=== PATIENT | male | born 1955 | race Caucasian/White ===

== ENCOUNTER 2019-02-01 07:42 | Day surgery (SDC) | payer OTHER, SELFPAY ==
--- NOTE | 2019-02-01 | PATH_ITS ---
[facility] Accession Number: [id number] . 01 Material submitted: . PART A: gastrointestinal site - GASTRIC POLYP PART B: esophagus, E-G Junction - BIOPSY GE JUNCTION PART C: esophagus - BIOPSY ESOPHAGUS AT 15 CM PART D: rectum - RECTUM NEAR ANUS POLYP . 01 Clinical history: . COLONOSCOPY; EGD . 02 Diagnosis: A. Gastric Polyp, Biopsy: Fragments of fundic gland polyp. No evidence of Helicobacter organisms on H/E stain. Negative for intestinal metaplasia, dysplasia or malignancy. . B. Gastroesophageal Junction, Biopsy: Squamocolumnar junctional mucosa with focal specialized intestinal metaplasia; please see comment. 0-1 eosinophils per 40X high-power field. Negative for dysplasia or malignancy. . C. Esophagus at 15 cm, Biopsy: Squamous epithelium with no diagnostic abnormality. 0-1 eosinophils per 40X high-power field. Negative for dysplasia or malignancy. . D. Rectum, Near Anus, Polyp: Hyperplastic polyp. [facility]/02/04/2019 . 02 Comment: Part B) The histologic findings would be consistent with Galindo's esophagus in the appropriate endoscopic setting. . 02 Electronically signed: . Adis Andrade MD, PhD, Pathologist NPI- [id number] . 01 Gross description: . Part A: GASTRIC POLYP: Received in formalin are multiple fragment(s) of patton, soft tissue measuring 0.1 x 0.1 x 0.1 cm to 0.3 x 0.2 x 0.2 cm which is entirely submitted and submitted entirely in 1 cassette(s) Part B: BIOPSY GE JUNCTION: Received in formalin are 4 fragment(s) of patton, soft tissue measuring 0.1 x 0.1 x 0.1 cm to 0.2 x 0.2 x 0.2 cm which is entirely submitted and submitted entirely in 1 cassette(s) Part C: BIOPSY ESOPHAGUS AT 15 CM: Received in formalin are 2 fragment(s) of patton, soft tissue measuring 0.1 x 0.1 x 0.1 cm to 0.3 x 0.1 x 0.1 cm which is entirely submitted and submitted entirely in 1 cassette(s) Part D: RECTUM NEAR ANUS POLYP: Received in formalin are 2 fragment(s) of patton, soft tissue measuring 0.1 x 0.1 x 0.1 cm to 0.3 x 0.1 x 0.1 cm which is entirely submitted and submitted entirely in 1 cassette(s) /[facility] /[facility] . 02 Pathologist provided ICD-10: K22.70, K31.7, R13.10, K62.1 . 02 CPT . 554156, 139055, 431786, 144822 Performed at: 01 [facility] [address] [id number] MD Yash Cardenas MD Phone: [phone] Performed at: 02 [facility] [address] [place], [place] [id number] MD Adriana Hawthorne MD Phone: [phone]
[2019-02-01 08:28] VITALS: BMI 27.0
[2019-02-01 08:35] VITALS: BP 161/96; PULSE 63; RESP 16; TEMP 36.8; O2SAT 95
[2019-02-01] MEDS: SODIUM CHLORIDE 0.9% 1,000 ML 200 ML IV (08:43)
--- NOTE | 2019-02-01 10:10 | PM.HP.1 ---
History of Present Illness Date Patient Seen: 02/01/19 Time Patient Seen: 10:10 Chief complaint: [id number] COLONSCOPY EGD Narrative: Patient was traveling in [place] a couple months ago and had multiple episodes of bloody bowel movements. He got to the point where he was lightheaded. He went and saw and they could not schedule a scope on him for at least months. He returned here and is presents for colonoscopy. He also has chronic reflux disease and a little bit of sensation is sticking in the upper throat area. He is for an EGD as well. He has had a colon resection for diverticulitis. This was in the late Patient History Medical History GERD (gastroesophageal reflux disease) (Acute) Hepatitis A (Acute) Hypertension (Acute) Swallowing dysfunction (Acute) Surgical History H/O resection of large bowel (Acute) Meds Home Medications Medication Instructions Recorded Confirmed Type amlodipine 2.5 mg PO DAILY 02/01/19 02/01/19 History omeprazole 20 mg PO DAILY 02/01/19 02/01/19 History zolpidem [Ambien] 10 mg PO BEDTIME PRN 02/01/19 02/01/19 History Allergies Allergy/AdvReac Type Severity Reaction Status Date / Time erythromycin base Allergy Severe Stomach Verified 02/01/19 08:24 ache Review of Systems Review of Systems All systems reviewed & are unremarkable except as noted in HPI and below Exam Vital Signs (past 8 hours): - 02/01/19 08:35 Temperature 98.2 F Pulse Rate 63 Respiratory Rate 16 Blood Pressure 161/96 H Pulse Oximetry 95 Oxygen Delivery Method Room Air Narrative Exam Narrative: Pleasant cooperative patient no apparent distress. Lungs are clear to auscultation. No rales or rhonchi. Heart regular rate and rhythm no murmur gallop. Abdomen is soft nontender without mass. No obvious hernias. Patient is alert and oriented x3. Assessment & Plan Assessment & Plan narrative: The patient for a screening colonoscopy. I have discussed the procedure with them. Risks of bleeding, perforation which would necessitate major operation, failure to find remove all lesions, the potential tattoo were all discussed. All questions were answered. They wished to proceed.
--- NOTE | 2019-02-01 10:13 | PM.PREOP ---
Pre-operative Note Interval Note History & Physical reviewed/Exam performed by Physician: Yes Changes to H&P: No ASA Class (for procedural sedation): II
[2019-02-01] MEDS: TETRACAINE/BENZOCAINE/BUTAMBEN (CETACAINE) BOTTLE 1 SPRAY TOP (10:16)
[2019-02-01] MEDS: LIDOCAINE 4% SOLN 50 ML 20 ML TOP (10:16)
[2019-02-01] MEDS: MIDAZOLAM 5 MG/5 ML VIAL IV (10:48)
[2019-02-01] MEDS: fentaNYL 250 MCG/5 ML INJ IV (10:49)
--- NOTE | 2019-02-01 10:54 | PM.OP.ENDO ---
Operative Date/Time/Diagnoses Date of procedure: 02/01/19 Time of procedure: 10:54 Pre-op diagnosis: Dysphagia. Chronic reflux disease. History of rectal bleeding. Post-op diagnosis: same (Gastric polyps. Probably fundic benign lesions. Evidence of Galindo's esophagus. GE junction biopsied. Extensive diverticulosis of the colon. Small rectal polyp.) Procedure & Clinicians Study performed: Colonoscopy with cold biopsy Same procedure as scheduled: Yes Indications: Rectal bleeding. Chronic reflux disease. Last colonoscopy 4 years ago Surgeon: Max Hays Procedure Notes SCOAP/Timeout: Performed Procedure in detail: The patient had topical anesthetic applied to oropharynx. She was placed in left lateral decubitus position and underwent IV sedation directed by the surgeon consisting of fentanyl and Versed. A bite block was inserted and the scope was advanced through it into the esophagus. The esophagus was unremarkable. GE junction was noted at 35 cm from the incisors. There were tongues of red tissue extending above the GE junction suggestive of Galindo's esophagus.. The stomach insufflated well. There were no lesions seen in the body, antrum or at the incisura. The pyloric channel was patent. The duodenum was unremarkable to the 4th part. The scope was brought back into the stomach and retroflexed. The proximal stomach was remarkable for a few scattered polyps that looked like gastric fundic polyps. Biopsies were taken of multiple lesions. The scope was straightened and brought out through the esophagus again. Biopsies were taken here. The scope was then slowly withdrawn. In the proximal esophagus just below the cricopharyngeal sphincter at 15 cm from the incisors there were 2 raised areas that looked like something pressing from behind the esophagus rather than an abnormality of the esophagus itself. Even so, both areas which were adjacent to 1 another were biopsied. The scope was then removed and the patient tolerated the procedure well. The patient was repositioned for colonoscopy. The patient was placed in the left lateral decubitus position and underwent IV sedation directed by the surgeon consisting of fentanyl and Versed. Digital exam was remarkable for an enlarged firm prostate. No dominant mass was felt.. The scope was inserted and advanced through the rectum into the sigmoid, descending, transverse, and ascending colon. Extensive diverticulosis was seen especially in the sigmoid colon. This was dubon colonic. Pressure was applied and a stiffener inserted and we reach the cecum.. The cecum was reached identified by the ileocecal valve and the appendiceal opening. The scope was gradually brought out. One Polyp was found at near the anal verge. This was a tiny lesion and was biopsied and completely removed.. The scope ultimately was retroflexed in the rectum. The appearance was normal.. The scope was removed and the patient tolerated the procedure well. The prep was good. Scope withdrawal time: 9 minutes Sedation minutes: 36 Findings: Galindo's esophagus (Possible. Biopsies taken), diverticulosis (Dubon colonic) and polyp (Gastric fundic polyps and 1 small anorectal polyp) Specimen(s): other (Polyp) Complications: none Recommendations: Colonscopy in 5 years (Due to prior history of polyps) and Other recommendation (Most likely source of bleeding diverticulosis. Take Metamucil daily. Eat a diet rich in fiber.) Follow up: as needed Disposition: PACU
[2019-02-01 11:00] VITALS: BP 109/66; PULSE 57; RESP 14; TEMP 36.7; O2SAT 95
[2019-02-01 11:05] VITALS: BP 106/66; PULSE 63; RESP 16; O2SAT 95
[2019-02-01 11:10] VITALS: BP 96/66; PULSE 58; RESP 13; O2SAT 96
[2019-02-01 11:15] VITALS: BP 112/76; PULSE 66; RESP 16; O2SAT 97
[2019-02-01 11:23] VITALS: BP 125/83; PULSE 59; RESP 15; TEMP 36.4; O2SAT 98
== END 2019-02-01 11:35 | disposition home or self-care (01) ==
LOC: ENDO 07:43
PROVIDERS: Family Provider Family Medicine Geriatric Medicine; PCP Family Medicine Geriatric Medicine; Visit Provider Specialist
PROC: 0DJD8ZZ Inspection of Lower Intestinal Tract, Via Natural or Artificial Opening Endoscopic (ICD-10-PCS; CPT 45378; principal; 2019-02-01 09:45)
PROC: 0DJ08ZZ Inspection of Upper Intestinal Tract, Via Natural or Artificial Opening Endoscopic (ICD-10-PCS; CPT 43235; 2019-02-01 09:45)
DX: K62.1 Rectal polyp (principal); R13.10 Dysphagia, unspecified; K22.70 Barrett's esophagus without dysplasia; K31.7 Polyp of stomach and duodenum; K21.9 Gastro-esophageal reflux disease without esophagitis; K57.30 Diverticulosis of large intestine without perforation or abscess without bleeding
CPT/HCPCS: 45380; 43239; 99152; 99153; J2250; J3010

== ENCOUNTER 2020-01-30 08:00 | Day surgery (SDC) | payer OTHER, SELFPAY ==
[2020-01-30] VITALS (7 sets, daily range): BP systolic 113–157; BP diastolic 69–98; PULSE 54–62; RESP 8–16; TEMP 36.1–36.6; O2SAT 91–98; BMI 29.0
--- NOTE | 2020-01-30 | PATH_ITS ---
[facility] Accession Number: [id number] . 01 Material submitted: . esophagus, E-G Junction - GE JUNCTION BIOPSY . 01 Clinical history: . EGD . 02 Diagnosis: Gastroesophageal Junction, Biopsy: Squamocolumnar junctional mucosa with specialized intestinal metaplasia; please see comment. Negative for dysplasia or malignancy. [facility] 01/31/2020 1456 Local . 02 Comment: The histologic findings in this case would be consistent with Galindo's esophagus in the appropriate endoscopic setting. . 02 Electronically signed: . Adis Andrade MD, PhD, Pathologist NPI- [id number] . 01 Gross description: . GE JUNCTION BIOPSY: Received in formalin are 4 fragment(s) of patton, soft tissue measuring 0.1 x 0.1 x 0.1 cm to 0.3 x 0.2 x 0.2 cm submitted entirely in 1 cassette(s) /[facility] 01/31/2020 0159 Local . 02 Pathologist provided ICD-10: K22.70 . 02 CPT . 173715 Performed at: 01 [facility] [address], [place], [place] [id number] MD Yash Cardenas MD Phone: [phone] Performed at: 02 [facility] [address] [place], [place] [id number] MD Adriana Hawthorne MD Phone: [phone]
--- NOTE | 2020-01-30 09:29 | PM.PREOP ---
Pre-operative Note COVID-19 COVID-19 status: Negative Result date/Date tested (Pos, Neg/Pending): 01/27/20 Interval Note History & Physical reviewed/Exam performed by Physician: Yes Changes to H&P: No ASA Class (for procedural sedation): II
--- NOTE | 2020-01-30 10:06 | PM.OP.ENDO ---
Operative Date/Time/Diagnoses Date of procedure: 01/30/20 Time of procedure: 10:06 Pre-op diagnosis: Dysphagia. History of reflux disease. Post-op diagnosis: same (Schatzki ring at the GE junction. Mild narrowing with evidence of possible Galindo's esophagus.) Procedure & Clinicians Study performed: EGD with cold biopsy and through the scope balloon dilatation to 18 mm diameter Same procedure as scheduled: Yes Indications: Evaluate cause of dysphagia Surgeon: Max Hays Procedure Notes SCOAP/Timeout: Performed Procedure in detail: The patient had topical anesthetic applied to oropharynx. She was placed in left lateral decubitus position and underwent IV sedation directed by the surgeon consisting of fentanyl and Versed. A bite block was inserted and the scope was advanced through it into the esophagus. The esophagus was unremarkable. GE junction was noted at 37 cm from the incisors. The patient had a 2-3 cm hiatal hernia. The stomach insufflated well. There were no lesions seen in the body, antrum or at the incisura. The pyloric channel was widely patent. The duodenum was unremarkable to the 4th part. The scope was brought back into the stomach and retroflexed. The proximal stomach normal in appearance except for the hiatal hernia. The scope was brought up to the GE junction and biopsies were taken of the area of possible Galindo's as well as circumferentially. A balloon was then passed through the scope and the patient was sequentially dilated from 15-18 mm sequentially. There was really no dilatation until I got above 16.5 mm. There was no significant bleeding. Once the balloon was let down, The scope was brought out through the esophagus again. No lesions were seen. The scope was removed and the patient tolerated the procedure well. Scope withdrawal time: Not applicable Sedation minutes: 18 Findings: Galindo's esophagus (Possible), stricture (At the GE junction where the Schatzki ring was located) and other findings (Schatzki ring) Specimen(s): other (Biopsy at the GE junction) Complications: none Post-procedure Recommendations: Continue medication(s) (Proton pump inhibitor for life or similar medication) Follow up: as needed Disposition: PACU
[2020-01-30] MEDS: fentaNYL 250 MCG/5 ML INJ IV (10:10)
[2020-01-30] MEDS: MIDAZOLAM 5 MG/5 ML VIAL IV (10:11)
[2020-01-30] MEDS: LIDOCAINE 4% SOLN 50 ML 20 ML TOP (10:11)
== END 2020-01-30 11:06 | disposition home or self-care (01) ==
PROVIDERS: Family Provider Family Medicine Geriatric Medicine; PCP Family Medicine; Referring Provider Specialist; Visit Provider Specialist
PROC: 0DJ08ZZ Inspection of Upper Intestinal Tract, Via Natural or Artificial Opening Endoscopic (ICD-10-PCS; CPT 43235; principal; 2020-01-30 10:45)
DX: K22.70 Barrett's esophagus without dysplasia (principal); K22.2 Esophageal obstruction; K44.9 Diaphragmatic hernia without obstruction or gangrene; I10 Essential (primary) hypertension; K21.9 Gastro-esophageal reflux disease without esophagitis
CPT/HCPCS: 43249; 43239; 99152; J2250; J3010

== ENCOUNTER 2020-08-23 11:17 | Observation (INO) | payer OTHER, SELFPAY ==
[2020-08-23 13:56] VITALS: BP 141/104; PULSE 65; RESP 14; TEMP 36.8; O2SAT 99
--- NOTE | 2020-08-23 14:04 | PM.HP.1 ---
History of Present Illness History of Present Illness Date Patient Seen: 08/23/20 Time Patient Seen: 14:04 Chief complaint: SMALL BOWEL OBSTRUCTION Narrative: Dao Barth is a 65-year-old male with a past medical history of hypertension, GERD with hx of Estes's and Schatski ring noted on recent EGD, prior diverticulitis with bowel resection about 20 years ago who presented with acute onset of nausea, profuse vomiting of clear red fluid (states after taking pepto), and crampy lower abdominal pain and bloating starting at about 6pm last evening. He had a bowel movement last night which was normal caliber and appearance but denies any gas or bowel movements since that time. He states that he previously had symptoms like this prior to an episode of what sounds like diverticular bleeding while [place] which was never found to have a cause. He presented to the ER on [facility] early this morning. He denies recent fever, chills, chest pain, shortness of breath, lower extremity edema. He does not drink alcohol. In the [facility], initial laboratory evaluation showed a mild leukocytosis of 12.1, hemoglobin of 16.3, normal platelets at 195. Chemistries were unremarkable with a creatinine of 0.7. Total bilirubin was mildly elevated at 1.9. Lactic acid was 3.5. Urinalysis was negative. Troponin was negative. EKG showed normal sinus rhythm without evidence of ischemia. CT scan of his abdomen showed a small-bowel obstruction with a transition point and possible surrounding swelling mesentery as well as diverticulosis and cholelithiasis without evidence of cholecystitis. ER at [facility] initially called [facility] in [place], however they did not have any available beds, and the patient was accepted here for further management of small-bowel obstruction. He was brought [facility] by private vehicle by his . No NG tube was placed prior to arrival, as his pain was fairly controlled on IV medications. Upon arrival here, patient complains of again lower abdominal pain, bloating, and slight nausea. He agreed to NG tube placement. Surgery was notified, and Dr. Jo agreed to consult. Patient History Medical History GERD (gastroesophageal reflux disease) Hepatitis A Hypertension Swallowing dysfunction Surgical History (Reviewed 08/23/20 @ 14:43 by JACQUIE Milton H/O resection of large bowel Family & Social History Social History: household members spouse,children Tobacco & Substance use: Smoking Status Never smoker alcohol intake never Substance Use Type does not use Meds Home Medications and Allergies Home Medications Medication Instructions Recorded Confirmed Type amlodipine 2.5 mg PO DAILY 02/01/19 08/23/20 History omeprazole 20 mg PO DAILY 02/01/19 08/23/20 History zolpidem [Ambien] 10 mg PO BEDTIME PRN 02/01/19 08/23/20 History Allergies Allergy/AdvReac Type Severity Reaction Status Date / Time erythromycin base Allergy Severe Stomach Verified 01/22/20 10:45 ache Review of Systems Review of Systems Narrative: All other systems reviewed with the patient and are negative unless otherwise stated. Exam Vital Signs (past 8 hours): - 08/23/20 13:56 Temperature 98.3 F Pulse Rate 65 Respiratory Rate 14 Blood Pressure 141/104 H Pulse Oximetry 99 Oxygen Flow Rate 0 Narrative Exam Narrative: GENERAL APPEARANCE: Well developed, well nourished, mild discomfort. SKIN: Inspection of the skin reveals no rashes, ulcerations or petechiae. HEENT: Normocephalic atraumatic, extraocular muscles are intact, oropharynx is clear and mucous membranes are moist, neck is supple without adenopathy NECK: Supple and symmetric. There was no thyroid enlargement, and no tenderness, or masses were felt. CHEST: Normal AP diameter and normal contour without any kyphoscoliosis. LUNGS: Auscultation of the lungs revealed no wheezes, rhonchi, or rales. CARDIOVASCULAR: There was a regular rate and rhythm without any murmurs, gallops, rubs. Peripheral pulses were 2+ and symmetric. ABDOMEN: Soft, mildly tender in epigastrium and to a lesser extend b/l lower quadrants. Mild distension. No rebound or guarding. MUSCULOSKELETAL: There was no tenderness or effusions noted. Muscle strength and tone were normal. EXTREMITIES: No cyanosis, clubbing or edema. NEUROLOGIC: Alert and oriented x 3. Normal affect. Gait was normal. Strength is +5/5 in the Upper Extremities and Lower Extremities Bilaterally. Sensation to touch was normal. Objective ECG Impression: Normal sinus rhythm. Poor quality printing of outside hospital EKG. Labs Labs: Please see above in HPI for review of outside labs. Assessment & Plan Assessment & Plan narrative: Dao Barth is a 65-year-old male with a past medical history of hypertension, GERD with hx of Estes's and Schatski ring noted on recent EGD, prior diverticulitis with bowel resection about 20 years ago who presented with acute onset of nausea, profuse vomiting of clear red fluid (states after taking pepto), and crampy lower abdominal pain and bloating starting at about 6pm last evening, direct admission from [facility] ER for small bowel obstruction. 1. SBO, acute, present on admission - Outside CT showing SBO with transition point and possible swirling of the surrounding mesentery. Diverticulosis and cholelithiasis is also noted. Attempting to have images pushed from [facility] to avoid repeat imaging. Etiology likely secondary to adhesions given prior bowel resection. - NPO, start IV fluids, pain control with dilaudid. - NG tube placement, to intermittent suction. - surgery, Dr. Jo, consulted. - repeat labs including CBC, CMP, type and screen, and coags. lactate ordered. LA 3.4 at [facility] ER. 2. Possible hematemesis, history of GERD. - possible hematemesis given nausea / vomiting of clear red material. with history of estes's esophagus and Schatzki Ring likely contributing. - patient is hemodynamically stable, will repeat labs to see if profound drop in Hg, although he appears slightly concentrated / dehydrated based on labs at [facility]. - will start protonix 80 mg x1, continue 40 mg BID pending NG placement which will be helpful in determining if he is actively bleeding. 3. HTN, chronic - will hold home medications at this time while NPO. Code: Full as discussed with the patient, surrogate decision maker is his . Dispo: admit under observation status at this time. DVT: hold in case of possible surgery, patient ambulatory. COVID-19 COVID-19 status: Negative Result date/Date tested (Pos, Neg/Pending): 08/23/20
[2020-08-23] MEDS: DEXTROSE 5%-0.9% NS 1,000 ML 100 ML IV ×2 (14:16→22:47)
[2020-08-23] MEDS: LORazepam 2 MG/ML INJ 0.5 MG IV (14:17)
[2020-08-23 14:25] VITALS: BMI 27.6
--- NOTE | 2020-08-23 14:29 | DI.RAD.S_ITS ---
PROCEDURE: FL SMALL BOWEL FOLLOW THROUGH INDICATIONS: SBFT COMPARISON: None. FINDINGS: Visualized solid organ contours appear within normal limits. No precontrast slitter and rewinder machine operator image obtained prior to administration of oral contrast through the nasogastric tube. There is normal transit time of oral contrast through the small bowel. Small bowel loops are of normal caliber throughout. Mucosal folds are smooth and of normal thickness. No strictures, intraluminal masses, or extrinsic mass effects are noted. Oral contrast is noted to transit to the level of the rectum. IMPRESSION: Unremarkable small bowel follow-through with transit of oral contrast from the stomach through the rectum. Dictated by: Nicholas Slater M.D. on 08/23/2020 at 19:20 Approved by: Nicholas Slater M.D. on 08/23/2020 at 19:25
[2020-08-23] MEDS: PANTOPRAZOLE 40 MG VIAL 80 MG IV (14:49)
[2020-08-23] MEDS: LIDOCAINE JELLY 2% 5 ML 1 APPLIC TOP (14:53)
[2020-08-23 14:59] LABS: Add Manual Diff / Slide Review NO; Basophils Absolute Auto 0 /uL (0-100); Basophils Percent Auto 0.2 % (0-2); Eosinophils Absolute Auto 0 /uL (0-450); Eosinophils Percent Auto 0.3 % (2-4); Hematocrit 44.3 % (41-53); Hemoglobin 14.8 g/dL (13.5-17.5); Lymphocytes Absolute Auto 1100 /uL (1100-4500); Lymphocytes Percent Auto 8.9 % (25-40); Mean Corpuscular HGB Conc 33.5 % (30-36); Mean Corpuscular Hemoglobin 31.3 PG (26-34); Mean Corpuscular Volume 93.6 fL (80-100); Monocytes Absolute Auto 800 /uL (0-900); Monocytes Percent Auto 6.2 % (3-14); Neutrophils Absolute Auto 10600 /uL (1500-7000); Neutrophils Percent Auto 84.4 % (50-75); Platelet Count 145 X10^3/uL (150-400); Red Blood Cell Count 4.73 X10^6/uL (4.5-5.9); Red Cell Distribution Width 13.7 % (11.6-14.8); White Blood Cell Count 12.5 X10^3/uL (4.5-11.0)
[2020-08-23 15:06] LABS: INR 1.1 (0.9-1.3); Prothrombin Time 12.8 SECONDS (10.1-12.7)
--- NOTE | 2020-08-23 15:06 | DI.RAD.S_ITS ---
PROCEDURE: XR CHEST 1V INDICATIONS: confirm NG tube placement TECHNIQUE: One view of the chest was acquired. COMPARISON: None. FINDINGS: Surgical changes and devices: The tip of the gastric tube is seen overlying the mid stomach. The side hole is seen just below the level of the diaphragm. Lungs and pleura: Lungs are clear. No pleural effusions or pneumothorax. Mediastinum: The cardiac contours are within normal limits. The aorta demonstrates calcification and tortuosity. Bones and chest wall: No suspicious bony lesions. Overlying soft tissues appear unremarkable. IMPRESSION: The tip of the gastric tube is seen overlying the mid stomach. Dictated by: Renato Silva M.D. on 08/23/2020 at 14:28 Approved by: Renato Silva M.D. on 08/23/2020 at 14:29
[2020-08-23 15:11] LABS: Alanine Aminotransferase 19 IU/L (<50); Albumin Globulin Ratio 1.4 (1.0-2.8); Alkaline Phosphatase 54 U/L (38-126); Aspartate Aminotransferase 26 IU/L (17-59); BUN Creatinine Ratio 18.2 (6-22); Bilirubin Total 1.9 mg/dL (0.2-1.3); Blood Urea Nitrogen 16 mg/dL (9-20); Calcium 8.5 mg/dL (8.4-10.2); Carbon Dioxide 29 mmol/L (22-32); Chloride 107 mmol/L (98-107); Estimated Glomerular Filt Rate > 60.0 mL/min (>60); Globulin 2.8 g/dL (1.7-4.1); Glucose 103 mg/dL (80-110); HEMOLYSIS < 15 (0-50); Potassium 3.6 mmol/L (3.4-5.1); Sodium 140 mmol/L (137-145); Total Protein 6.8 g/dL (6.3-8.2)
[2020-08-23 15:13] LABS: PTT Partial Thromboplastin Tim 31 SECONDS (26.4-36.2)
--- NOTE | 2020-08-23 15:28 | PC.NURSE ---
Patient received as direct admit from Monday, settled into and oriented to room 203. Patient denies pain on arrival, though RLQ of abdomen is tender to touch. Patient states the pain medication given to him prior to leaving [facility] helped a lot. Patient seen and evaluated by Dr. Ge, orders received. NG tube inserted to right nare with spontaneous suction of orange/red fluid, secured at 62CM, and Xray in to confirm placement, awaiting confirmation prior to SB follow through. Urinal and call light placed within reach. Patient instructed to call for assistance, maintain high fall risk fall precautions. Bed alarm in place for safety. Evening shift RN given report.
[2020-08-23] MEDS: ONDANSETRON 4 MG/2 ML INJ IV (16:08)
[2020-08-23 16:25] VITALS: BP 137/83; PULSE 71; RESP 20; TEMP 37; O2SAT 95
[2020-08-23] MEDS: METOCLOPRAMIDE 10 MG/2 ML INJ IV (19:01)
--- NOTE | 2020-08-23 19:55 | PC.NURSE ---
Patient had multiple BMs following SB follow through. Dr. Jo removed NG tube and put patient on clear liquids, advancing as tolerated. Patient is still having nausea but reports feeling better overall.
--- NOTE | 2020-08-23 20:17 | P.CONS_ITS ---
History of Present Illness Consult details Date Patient Seen: 08/23/20 Time Patient Seen: 20:17 Chief complaint: SMALL BOWEL OBSTRUCTION Narrative: 65-year-old man seen in consultation for small-bowel obstruction. History of diverticular disease and elective sigmoid colectomy 20 years ago no other prior abdominal surgeries. Today he developed abdominal pain, nausea, vomiting and bloating. CT A/P at [place] demonstrated a small-bowel obstruction with a possible transition point, no free air or free fluid. At outside hospital WBC 12, normal chemistry. A nasogastric tube was placed upon his admission. Currently, after completing a small bowel follow through, he has had multiple bowel movements and has minimal abdominal pain and improvement in his bloating. Meds Home Medications and Allergies Home Medications Medication Instructions Recorded Confirmed Type amlodipine 2.5 mg PO DAILY 02/01/19 08/23/20 History omeprazole 20 mg PO DAILY 02/01/19 08/23/20 History zolpidem [Ambien] 10 mg PO BEDTIME PRN 02/01/19 08/23/20 History Allergies Allergy/AdvReac Type Severity Reaction Status Date / Time erythromycin base Allergy Severe Stomach Verified 01/22/20 10:45 ache Review of Systems Review of Systems ROS: Yes All systems reviewed with the patient and are negative except as otherwise documented Exam Vital Signs (past 8 hours): - 08/23/20 13:56 08/23/20 16:25 Temperature 98.3 F 98.6 F Pulse Rate 65 71 Respiratory Rate 14 20 Blood Pressure 141/104 H 137/83 Pulse Oximetry 99 95 Oxygen Flow Rate 0 Narrative Exam Narrative: General-no acute distress, well nourished adult male HEENT-moist mucous membranes, no scleral icterus Neck-supple, no lymphadenopathy Chest- non labored respirations, clear to auscultation bilaterally Cardiac-regular rate no peripheral edema Abdomen-soft, minimally distended no peritonitis Extremities-warm, well perfused Neurological-alert and oriented, no focal deficits Objective Labs Result Diagrams: 08/23/20 14:48 08/23/20 14:48 Labs: Laboratory Results - last 24 hr 08/23/20 08/23/20 08/23/20 14:48 14:48 14:48 WBC 12.5 H RBC 4.73 Hgb 14.8 Hct 44.3 MCV 93.6 MCH 31.3 MCHC 33.5 RDW 13.7 Plt Count 145 L Neut % (Auto) 84.4 H Lymph % (Auto) 8.9 L [place] % (Auto) 6.2 Eos % (Auto) 0.3 L Baso % (Auto) 0.2 Neut # (Auto) 95383 H Lymph # (Auto) 1100 [place] # (Auto) 800 Eos # (Auto) 0 Baso # (Auto) 0 PT 12.8 H INR 1.1 APTT 31 Sodium Potassium Chloride Carbon Dioxide BUN Creatinine Estimated GFR BUN/Creatinine Ratio Glucose Lactate Calcium Total Bilirubin AST ALT Alkaline Phosphatase Total Protein Albumin Globulin Albumin/Globulin Ratio Blood Type Antibody Screen 08/23/20 08/23/20 08/23/20 14:48 14:48 14:48 WBC RBC Hgb Hct MCV MCH MCHC RDW Plt Count Neut % (Auto) Lymph % (Auto) [place] % (Auto) Eos % (Auto) Baso % (Auto) Neut # (Auto) Lymph # (Auto) [place] # (Auto) Eos # (Auto) Baso # (Auto) PT INR APTT Sodium 140 Potassium 3.6 Chloride 107 Carbon Dioxide 29 BUN 16 Creatinine 0.88 Estimated GFR > 60.0 BUN/Creatinine Ratio 18.2 Glucose 103 Lactate 1.0 Calcium 8.5 Total Bilirubin 1.9 H AST 26 ALT 19 Alkaline Phosphatase 54 Total Protein 6.8 Albumin 4.0 Globulin 2.8 Albumin/Globulin Ratio 1.4 Blood Type O Positive Antibody Screen Negative Assessment & Plan Assessment and plan (1) Small bowel obstruction: Status: Acute Assessment & Plan narrative: 65-year-old man history of sigmoid colectomy for benign disease presents with a small bowel obstruction likely secondary to adhesive disease. I am unable to view the outside hospital images at this time but per report demonstrates small bowel obstruction with possible transition point no free air or free fluid. A small-bowel follow-through has now been completed and demonstrates contrast within the colon at 2 hours time. He has had multiple bowel movements and feels significantly better. I removed the nasogastric tube, he may begin on clear liquid diet advance as tolerated. If he is tolerant of a diet and continues to have no significant abdominal pain he this appropriate for discharge.
[2020-08-23 21:00] VITALS: BP 132/110; PULSE 79; RESP 20; TEMP 37; O2SAT 95
[2020-08-23] MEDS: PANTOPRAZOLE 40 MG VIAL IV (22:41)
[2020-08-23 22:42] VITALS: BP 146/77; PULSE 65
[2020-08-23 23:10] VITALS: BP 136/76; PULSE 66; RESP 18; TEMP 36.9; O2SAT 94
[2020-08-23 23:39] VITALS: O2SAT 95
[2020-08-24 03:00] VITALS: O2SAT 95
[2020-08-24 05:10] VITALS: BP 141/90; PULSE 62; RESP 18; TEMP 36.6; O2SAT 96
[2020-08-24 05:31] LABS: Add Manual Diff / Slide Review NO; Basophils Absolute Auto 0 /uL (0-100); Basophils Percent Auto 0.3 % (0-2); Eosinophils Absolute Auto 100 /uL (0-450); Eosinophils Percent Auto 1.3 % (2-4); Hematocrit 40.7 % (41-53); Hemoglobin 13.8 g/dL (13.5-17.5); Lymphocytes Absolute Auto 1900 /uL (1100-4500); Lymphocytes Percent Auto 22.3 % (25-40); Mean Corpuscular Hemoglobin 31.7 PG (26-34); Mean Corpuscular Volume 93.2 fL (80-100); Monocytes Absolute Auto 800 /uL (0-900); Monocytes Percent Auto 9.4 % (3-14); Neutrophils Absolute Auto 5800 /uL (1500-7000); Neutrophils Percent Auto 66.7 % (50-75); Platelet Count 139 X10^3/uL (150-400); Red Blood Cell Count 4.37 X10^6/uL (4.5-5.9); Red Cell Distribution Width 13.6 % (11.6-14.8); White Blood Cell Count 8.7 X10^3/uL (4.5-11.0)
[2020-08-24 05:40] LABS: Alanine Aminotransferase 17 IU/L (<50); Albumin 3.5 g/dL (3.5-5.0); Albumin Globulin Ratio 1.3 (1.0-2.8); Alkaline Phosphatase 47 U/L (38-126); Aspartate Aminotransferase 23 IU/L (17-59); BUN Creatinine Ratio 18.7 (6-22); Bilirubin Unconjugated 2.2 mg/dL (0.0-1.1); Blood Urea Nitrogen 17 mg/dL (9-20); Calcium 8.2 mg/dL (8.4-10.2); Carbon Dioxide 28 mmol/L (22-32); Chloride 112 mmol/L (98-107); Estimated Glomerular Filt Rate > 60.0 mL/min (>60); Globulin 2.6 g/dL (1.7-4.1); Glucose 112 mg/dL (80-110); HEMOLYSIS < 15 (0-50); Magnesium 2.2 mg/dL (1.6-2.3); Potassium 3.5 mmol/L (3.4-5.1); Sodium 140 mmol/L (137-145); Total Protein 6.1 g/dL (6.3-8.2)
[2020-08-24 07:00] VITALS: O2SAT 98
[2020-08-24 08:00] VITALS: BP 150/88; PULSE 69; RESP 18; TEMP 36.8; O2SAT 97
--- NOTE | 2020-08-24 08:59 | CM.DANOTE ---
DCP: Case received, EMR reviewed and met with patient. Introduced self and role. Was able to obtain information from patient regarding his baseline activity status prior to hospitalization. DCP assessment completed with information currently available. Patient is a 65 year old male who admitted yesterday morning to the care of the hospitalist team. PCP: Dr. Lamb. Payer: confirmed: [employer]. Patient came to the hospital via private vehicle from Monday accompanied with spouse, secondary to having nausea, as well as abdominal discomfort. Patient was diagnosed with small bowel obstruction. He has not needed an NG tube, and has had bowel movements. Patient does have history of diverticulitis, as well. Met with patient in his room. He is alert and oriented, independent, is able to ambulate in room with no devices. He resides in [place] with his spouse, Eduardo. He is employed at [employer]. He is originally from [place]. P: DCP to continue to follow. Patient can possibly go home today if he is tolerating diet, and having consistent BMs. Rimma Myrick RN/Managed Services Consultant
[2020-08-24] MEDS: PANTOPRAZOLE 40 MG VIAL IV (09:20)
--- NOTE | 2020-08-24 09:35 | P.DS_ITS ---
History of Present Illness History of Present Illness Date Patient Seen: 08/24/20 Time Patient Seen: 09:35 Chief complaint: SMALL BOWEL OBSTRUCTION Narrative: Dao Barth is a 65-year-old male with a past medical history of hypertension, GERD with hx of Galindo's and Schatski ring noted on recent EGD, prior diverticulitis with bowel resection about 20 years ago who presented with acute onset of nausea, profuse vomiting of clear red fluid (states after taking pepto), and crampy lower abdominal pain and bloating starting at about 6pm last evening. He had a bowel movement last night which was normal caliber and appearance but denies any gas or bowel movements since that time. He states that he previously had symptoms like this prior to an episode of what sounds like diverticular bleeding [place] which was never found to have a cause. He presented to the ER on [place] early this morning. He denies recent fever, chills, chest pain, shortness of breath, lower extremity edema. He does not drink alcohol. In the [place] [facility], initial laboratory evaluation showed a mild leukocytosis of 12.1, hemoglobin of 16.3, normal platelets at 195. Chemistries were unremarkable with a creatinine of 0.7. Total bilirubin was mildly elevated at 1.9. Lactic acid was 3.5. Urinalysis was negative. Troponin was negative. EKG showed normal sinus rhythm without evidence of ischemia. CT scan of his abdomen showed a small-bowel obstruction with a transition point and possible surrounding swelling mesentery as well as diverticulosis and cholelithiasis without evidence of cholecystitis. ER at [facility] initially called [facility] in [place], however they did not have any available beds, and the patient was accepted here for further management of small-bowel obstruction. He was brought [facility] to [facility] by private vehicle by his . No NG tube was placed prior to arrival, as his pain was fairly controlled on IV m edications. Upon arrival here, patient complains of again lower abdominal pain, bloating, and slight nausea. He agreed to NG tube placement. Surgery was notified, and Dr. Jo agreed to consult. Discharge Providers Provider Date of admission: 08/23/20 11:17 Discharge Date: 08/24/20 Primary care physician: Ramana Lamb MD Consults: 08/23/20 14:10 Consult to General Surgery Routine Comment: Consulting Provider: Brody Jo Reason for consultation: SBO Has provider been notified: Yes Discharge provider: Ez Ge DO Summary Hospital Course Discharge Diagnosis: 1. SBO, acute, present on admission, resolved 2. GERD, hematemesis ruled out. 3. HTN, chronic Hospital Course: Dao Barth is a 65-year-old male with a past medical history of hypertension, GERD with hx of Galindo's and Schatski ring noted on recent EGD, prior diverticulitis with bowel resection about 20 years ago who was a direct admission from the [facility] with a small-bowel obstruction. NG tube was placed for continued symptoms upon arrival. Patient had a small bowel follow-through study with subsequent passing of loose stools. His abdominal pain and distension improved and his NG tube was removed. He tolerated regular diet the following morning and was discharged home. There was initial concern for possible hematemesis however the patient did not have any melanotic appearing stools an his hemoglobin remained normal. He will remain on his usual home dose of omeprazole. Exam Vital Signs (past 8 hours): - 08/24/20 03:00 08/24/20 05:10 08/24/20 07:00 Temperature 97.8 F Pulse Rate 62 Respiratory Rate 18 Blood Pressure 141/90 H Pulse Oximetry 95 96 98 08/24/20 08:00 Temperature 98.3 F Pulse Rate 69 Respiratory Rate 18 Blood Pressure 150/88 H Pulse Oximetry 97 Oxygen Delivery Method Room Air Oxygen Flow Rate 0 Narrative Exam Narrative: GENERAL APPEARANCE: Well developed, well nourished, no acute distress HEENT: Normocephalic atraumatic, extraocular muscles are intact, oropharynx is clear and mucous membranes are moist, neck is supple without adenopathy LUNGS: Auscultation of the lungs revealed no wheezes, rhonchi, or rales. CARDIOVASCULAR: There was a regular rate and rhythm without any murmurs, gallops, rubs. Peripheral pulses were 2+ and symmetric. ABDOMEN: Soft, non-tender, non-distended EXTREMITIES: No cyanosis, clubbing or edema. NEUROLOGIC: Alert and oriented x 3. Normal affect. Gait was normal. Objective Labs Result Diagrams: 08/24/20 05:10 08/24/20 05:10 Labs: Laboratory Results - last 24 hr 08/23/20 08/23/2021 14:48 14:48 14:48 WBC 12.5 H RBC 4.73 Hgb 14.8 Hct 44.3 MCV 93.6 MCH 31.3 MCHC 33.5 RDW 13.7 Plt Count 145 L Neut % (Auto) 84.4 H Lymph % (Auto) 8.9 L [place] % (Auto) 6.2 Eos % (Auto) 0.3 L Baso % (Auto) 0.2 Neut # (Auto) 09127 H Lymph # (Auto) 1100 [place] # (Auto) 800 Eos # (Auto) 0 Baso # (Auto) 0 PT 12.8 H INR 1.1 APTT 31 Sodium Potassium Chloride Carbon Dioxide BUN Creatinine Estimated GFR BUN/Creatinine Ratio Glucose Lactate Calcium Magnesium Total Bilirubin Conjugated Bilirubin Unconjugated Bilirubin AST ALT Alkaline Phosphatase Total Protein Albumin Globulin Albumin/Globulin Ratio Blood Type Antibody Screen 08/23/20 08/23/20 08/23/20 14:48 14:48 14:48 WBC RBC Hgb Hct MCV MCH MCHC RDW Plt Count Neut % (Auto) Lymph % (Auto) [place] % (Auto) Eos % (Auto) Baso % (Auto) Neut # (Auto) Lymph # (Auto) [place] # (Auto) Eos # (Auto) Baso # (Auto) PT INR APTT Sodium 140 Potassium 3.6 Chloride 107 Carbon Dioxide 29 BUN 16 Creatinine 0.88 Estimated GFR > 60.0 BUN/Creatinine Ratio 18.2 Glucose 103 Lactate 1.0 Calcium 8.5 Magnesium Total Bilirubin 1.9 H Conjugated Bilirubin Unconjugated Bilirubin AST 26 ALT 19 Alkaline Phosphatase 54 Total Protein 6.8 Albumin 4.0 Globulin 2.8 Albumin/Globulin Ratio 1.4 Blood Type O Positive Antibody Screen Negative 08/24/20 08/24/20 05:10 05:10 WBC 8.7 RBC 4.37 L Hgb 13.8 Hct 40.7 L MCV 93.2 MCH 31.7 MCHC 34.0 RDW 13.6 Plt Count 139 L Neut % (Auto) 66.7 Lymph % (Auto) 22.3 L [place] % (Auto) 9.4 Eos % (Auto) 1.3 L Baso % (Auto) 0.3 Neut # (Auto) 5800 Lymph # (Auto) 1900 [place] # (Auto) 800 Eos # (Auto) 100 Baso # (Auto) 0 PT INR APTT Sodium 140 Potassium 3.5 Chloride 112 H Carbon Dioxide 28 BUN 17 Creatinine 0.91 Estimated GFR > 60.0 BUN/Creatinine Ratio 18.7 Glucose 112 H Lactate Calcium 8.2 L Magnesium 2.2 Total Bilirubin 2.0 H Conjugated Bilirubin 0.0 Unconjugated Bilirubin 2.2 H AST 23 ALT 17 Alkaline Phosphatase 47 Total Protein 6.1 L Albumin 3.5 Globulin 2.6 Albumin/Globulin Ratio 1.3 Blood Type Antibody Screen [facility] Medical History (Updated 08/23/20 @ 20:23 by Brody Jo MD) GERD (gastroesophageal reflux disease) Hepatitis A Hypertension Swallowing dysfunction Surgical History H/O resection of large bowel Social History household members: spouse and children Smoking Status: Never smoker alcohol intake: never Discharge Plan Discharge Plan Patient Disposition: Home Provider Discharge Comment: You were admitted to the hospital with small bowel obstruction. Improved after small bowel follow through and NG tube. No medication changes are recommended. Discharge orders & Medications Prescriptions: Continued amlodipine 2.5 mg Tablet 2.5 mg PO DAILY RF: 0 zolpidem [Ambien] 10 mg Tablet 10 mg PO BEDTIME PRN (Reason: Insomnia) RF: 0 omeprazole 20 mg Tablet,Delayed Release (Dr/Ec) 20 mg PO DAILY RF: 0 Follow up/Referrals: Ramana Lamb MD [Primary Care Provider] - Diet/Activity/Treatments Diet: Diet as Tolerated Activity: As tolerated Discharge Data Primary Care Provider: Ramana Lamb
[2020-08-24] MEDS: AMLODIPINE 5 MG TABLET 2.5 MG PO (10:35)
[2020-08-24 11:00] VITALS: O2SAT 98
--- NOTE | 2020-08-24 12:00 | PC.NURSE ---
Patient educated about small bowel instructions, diet changes, medications, activity, ss/ of stroke, and DVT's. Patient left facility with all belongings and ferry pass to [place]. Patient did not have any prescriptions that needed to be filled or that were e-sent. Patient left facility in private vehicle via wheelchair and by his side.
== END 2020-08-24 11:40 | disposition home or self-care (01) ==
PROVIDERS: Admitting Provider Internal Medicine; Family Provider Family Medicine Geriatric Medicine; PCP Family Medicine; Referring Provider Internal Medicine; Visit Provider Internal Medicine
DX: K56.50 Intestinal adhesions [bands], unspecified as to partial versus complete obstruction (principal); I10 Essential (primary) hypertension; K21.9 Gastro-esophageal reflux disease without esophagitis
CPT/HCPCS: 36415; 71045; 74250; 80048; 80053; 80076; 83605; 83735; 85025; 85610; 85730; 86850; 86900; 86901; 99225; G0378; C9113; G0379; J2060; J2405; J2765

== ENCOUNTER 2021-06-25 09:51 | Observation (INO) | payer MEDICARE, OTHER, SELFPAY ==
--- NOTE | 2021-06-25 11:18 | PC.NURSE ---
Day shift: Pt not on AC unit at this time. Plan is for around 1400 today.
--- NOTE | 2021-06-25 15:46 | PC.NURSE ---
Day shift: Pt on unit at approx 1545. He is A&Ox4. Steady on his feet. Oriented to room and call light. He complains of mild nausea and pounding headache. He came with an IV in place w/ no s/s of infection. Call light in reach, in bed and has hospital gown on.
[2021-06-25 15:55] VITALS: BMI 26.1
--- NOTE | 2021-06-25 17:47 | PC.NURSE ---
Day shift: Dr Grace seeing Pt now (approx 1730).
--- NOTE | 2021-06-25 18:07 | PM.HP.1 ---
History of Present Illness History of Present Illness Date Patient Seen: 06/25/21 Time Patient Seen: 18:07 Chief complaint: SMALL BOWEL OBSTRUCTION Narrative: Dao is a 66-year-old gentleman who presents with a small-bowel obstruction from Monday. He reports that he started vomiting significantly last night. A CT scan at Monday showed the small bowel obstruction. He had an NG tube for about an hour there but he removed it himself. Since then, he has felt well with no more nausea or vomiting and he reports he has passed some gas. I am unable to see the CT images at this time. His only real complaint at this time as a headache. He had a similar episode about a year ago which resolved after initiating a small-bowel follow-through here. He had a sigmoid colon resection many years ago for diverticulitis. Patient History Medical History (Updated 11/01/20 @ 13:22 by Max Hays MD) GERD (gastroesophageal reflux disease) Hepatitis A Hypertension Swallowing dysfunction Surgical History H/O resection of large bowel Family & Social History Social History: household members spouse,children Prior Living Arrangements House Safety & Behavioral: Feels Safe in Current Yes Environment Been Physically Hurt or No Threatened By a Person Suicidal Ideation Description None Suicide Plan Description No Plan Tobacco & Substance use: Smoking Status Never smoker alcohol intake never Substance Use Type does not use Meds Home Medications and Allergies Home Medications Medication Instructions Recorded Confirmed Type amlodipine 2.5 mg tablet 20 mg PO DAILY 02/01/19 06/25/21 History omeprazole 20 mg tablet,delayed 20 mg PO DAILY 02/01/19 06/25/21 History release zolpidem 10 mg tablet (Ambien) 10 mg PO BEDTIME PRN 02/01/19 06/25/21 History Allergies Allergy/AdvReac Type Severity Reaction Status Date / Time erythromycin base AdvReac Severe Stomach Verified 06/25/21 17:54 ache Exam Const General: healthy appearing and No acute distress Other: Abdomen soft, nontender Old surgical scar in the midline, possible small, reducible incisional hernia Assessment & Plan Assessment and plan (1) Small bowel obstruction: Status: Acute Plan Since he has done well without an NG tube for the past 6 hours and he is passing some gas it is possible his obstruction has already resolved. Will start on clear liquid diet tonight and advance tomorrow if he is doing well. We will give him some Tylenol for his headache. Time Spent With Patient Critical Care time: I spent a total of [] minutes of critical care time on this patient's care today; this time is exclusive of procedural time.
[2021-06-25] MEDS: ACETAMINOPHEN 325 MG TABLET 650 MG PO (18:10)
[2021-06-25] MEDS: SODIUM CHLORIDE 0.9% 500 ML IV (18:11)
[2021-06-26 00:58] VITALS: BP 121/81; PULSE 67; RESP 16; TEMP 37.3; O2SAT 97
[2021-06-26 05:48] VITALS: BP 131/78; PULSE 62; RESP 18; TEMP 37.4; O2SAT 98
[2021-06-26 08:25] VITALS: BP 144/83; PULSE 60; RESP 20; TEMP 36.8; O2SAT 98
[2021-06-26 11:55] VITALS: BP 152/94; PULSE 67; RESP 18; TEMP 36.6; O2SAT 99
--- NOTE | 2021-06-26 13:09 | PM.PN.1 ---
Subjective Subjective Date Patient Seen: 06/26/21 Time Patient Seen: 13:09 Interval history: Tolerating clear liquids. Having normal bowel function. No complaints. Exam Vital Signs (past 8 hours): - 06/26/21 05:48 06/26/21 08:25 06/26/21 11:55 Temperature 99.3 F 98.3 F 97.8 F Pulse Rate 62 60 67 Respiratory Rate 18 20 18 Blood Pressure 131/78 144/83 H 152/94 H Pulse Oximetry 98 98 99 Oxygen Flow Rate 0 Const General: No acute distress Resp Effort & Inspection: normal respiratory effort GI Inspection: non-distended Palpation: soft PFSH Medical History (Updated 11/01/20 @ 13:22 by Max Hays MD) GERD (gastroesophageal reflux disease) Hepatitis A Hypertension Swallowing dysfunction Surgical History H/O resection of large bowel Social History household members: spouse and children Smoking Status: Never smoker alcohol intake: never Assessment & Plan Assessment and plan (1) Small bowel obstruction: Status: Acute Plan Small-bowel obstruction appears to have resolved. Regular diet and home if tolerates. Time Spent With Patient Critical Care time: I spent a total of [] minutes of critical care time on this patient's care today; this time is exclusive of procedural time.
--- NOTE | 2021-06-26 13:17 | P.DS_ITS ---
History of Present Illness History of Present Illness Chief complaint: SMALL BOWEL OBSTRUCTION Narrative: Dao is a 66-year-old gentleman who presents with a small-bowel obstruction from [place]. He reports that he started vomiting significantly last night. A CT scan at [place] showed the small bowel obstruction. He had an NG tube for about an hour there but he removed it himself. Since then, he has felt well with no more nausea or vomiting and he reports he has passed some gas. I am unable to see the CT images at this time. His only real complaint at this time as a headache. He had a similar episode about a year ago which resolved after initiating a small-bowel follow-through here. He had a sigmoid colon resection many years ago for diverticulitis. Discharge Providers Provider Date of admission: 06/25/21 09:51 Discharge Date: 06/26/21 Primary care physician: Ramana Lamb MD Consults: 06/25/21 16:07 Consult to Pastoral Services Routine Comment: Requests to speak with Ladonna on admit today Discharge provider: Nahun Grace MD Summary Hospital Course Discharge Diagnosis: Small-bowel obstruction resolved Hospital Course: The patient was transferred from [place] [facility] with small-bowel obstruction. He had removed his NG tube prior to arrival. He had no more nausea or vomiting once he had arrived at [facility]. His diet was advanced and once he was tolerating regular diet and having adequate bowel function he was discharged home. He was told follow-up as needed. Exam Vital Signs (past 8 hours): - 06/26/21 05:48 06/26/21 08:25 06/26/21 11:55 Temperature 99.3 F 98.3 F 97.8 F Pulse Rate 62 60 67 Respiratory Rate 18 20 18 Blood Pressure 131/78 144/83 H 152/94 H Pulse Oximetry 98 98 99 Oxygen Flow Rate 0 PFSH Medical History (Updated 11/01/20 @ 13:22 by Max Hays MD) GERD (gastroesophageal reflux disease) Hepatitis A Hypertension Swallowing dysfunction Surgical History H/O resection of large bowel Social History household members: spouse and children Smoking Status: Never smoker alcohol intake: never Discharge Plan Discharge Plan Patient Disposition: Home Discharge orders & Medications Prescriptions: Continued amlodipine 2.5 mg Tablet 20 mg PO DAILY 0RF zolpidem [Ambien] 10 mg Tablet 10 mg PO BEDTIME PRN (Reason: Insomnia) 0RF omeprazole 20 mg Tablet,Delayed Release (Dr/Ec) 20 mg PO DAILY 0RF Follow up/Referrals: Ramana Lamb MD [Primary Care Provider] - Discharge Data Primary Care Provider: Ramana Lamb
--- NOTE | 2021-06-26 13:24 | CM.DANOTE ---
DCP Assessment: 66 yr old male here for SBO. CM met with patient at the bedside and explained role patient was alert and oriented x4 during visit. patient currently [place] and [place] boarding at [place]. CM let AUTOMOTIVE ALIGNMENT SPECIALIST know. Patient is Independent with all ADLs and drives at his baseline. Patient lives with his and adult daughter in a single level home. I: Medicare and regence. Plan: [place] home with family will need priority boarding [place] the [place] ferry no other identified DC planning needs noted. Nicole Simpson RN Case Manger Discharge Planning/Care Management Advanced directive, confirm from FAMILY Start: 06/25/21 16:08 Freq: Q24H Status: Active Protocol: Document 06/25/21 16:14 YAD (Rec: 06/25/21 16:27 YAD [id number]) Co-Signed By Xiomy Bowman RN Advance Directive, confirm on record Time 16:26 Person contacted patient Copy received No CM Discharge Assessment Start: 06/26/21 13:23 Freq: Status: Active Protocol: Document 06/26/21 13:24 HS (Rec: 06/26/21 13:24 HS [id number]) Discharge Planning Assessment Assigned Dielectric Embossing Machine Operator Nicole simpson RN Case Manger DPOA/Assigned Designee Name Janey Barth - Contact Information [phone] Advance Directives? Yes Advance Directives on File No History Provided By Patient Prior Living Arrangements House Household Members spouse,children Type of transporation used prior to Drives own vehicle admit Independent with ADL's Yes Is patient alert and oriented? Yes Caregiver for Another No Barriers to Discharge No Discharge Plan Home Transportation Arrangement Spouse Referrals Initiated None needed Whiteboard Updated in Patient Room with Yes name and ext. # of Dielectric Embossing Machine Operator Review Status In Process Next Review Type Continued Stay Review
== END 2021-06-26 14:52 | disposition home or self-care (01) ==
PROVIDERS: Admitting Provider Surgery; Family Provider Family Medicine Geriatric Medicine; PCP Family Medicine; Referring Provider Surgery; Visit Provider Surgery
DX: K56.609 Unspecified intestinal obstruction, unspecified as to partial versus complete obstruction (principal); K21.9 Gastro-esophageal reflux disease without esophagitis; I10 Essential (primary) hypertension
CPT/HCPCS: 99222; 99238; G0378; G0379

== ENCOUNTER 2024-02-29 07:50 | Day surgery (SDC) | payer MEDICARE, OTHER, SELFPAY ==
[2023-12-22 16:16] VITALS: BMI 26.1
--- NOTE | 2024-02-29 | PATH_ITS ---
[facility] Accession Number: [id number] No. of containers..02 Tissue . 01 Material submitted: . PART A: colon - CECUM POLYPS PART B: rectum - RECTAL POLYP . 01 Diagnosis: Part A: CECUM POLYPS: Hyperplastic polyps. . Part B: RECTAL POLYP: Tubular adenoma. [facility] 03/04/2024 1327 Local . 01 Electronically signed: . Yash Cardenas MD, Pathologist NPI- [id number] . 01 Gross description: . A. Received in formalin with two patient identifiers and cecum polyps, are three patton soft tissue fragments, 0.4 to 0.5 cm in greatest dimension. Submitted in A1. . B. Received in formalin with two patient identifiers and rectal polyp, are two patton soft tissue fragments, 0.4 to 0.8 cm in greatest dimension. Submitted in B1. ([id number]) /MRV 03/04/2024 1327 Local . 01 Pathologist provided ICD-10: D12.8, K63.5 . 01 CPT . 683362, 108986 Specimen Comment: A courtesy copy of this report has been sent to [phone] Performed at: [address] [facility] [address], [place], [place] [id number] MD Yash Cardenas MD Phone: [phone]
[2024-02-29] MEDS: LACTATED RINGERS 1,000 ML 42 ML IV (08:01)
[2024-02-29 08:13] VITALS: BMI 26.6
[2024-02-29 08:14] VITALS: BP 164/93; PULSE 83; RESP 16; TEMP 36.9; O2SAT 97
--- NOTE | 2024-02-29 08:41 | PM.HP.1 ---
History of Present Illness History of Present Illness Date Patient Seen: 02/29/24 Time Patient Seen: 08:42 Chief complaint: Dx Colonoscopy w/poss bx Narrative: Dao is a 68-year-old man who presents for a colonoscopy due to rectal bleeding. See the recent office note for more details. [facility] Medical History (Updated 01/03/24 @ 15:01 by Nahun Grace MD) Swallowing dysfunction Hepatitis A GERD (gastroesophageal reflux disease) Hypertension Surgical History H/O resection of large bowel Social History household members: spouse and children Smoking Status: Never smoker alcohol intake: current Meds Home Medications and Allergies Home Medications Medication Instructions Recorded Confirmed Type omeprazole 20 mg tablet,delayed 20 mg PO DAILY 02/01/19 01/03/24 History release zolpidem 10 mg tablet (Ambien) 10 mg PO BEDTIME PRN Insomnia 02/01/19 01/03/24 History sodium,potassium,mag sulfates 17.5 See Rx Instructions PO .COMPLEX 01/17/24 Rx gram-3.13 gram-1.6 gram oral soln #354 mL (Suprep Bowel Prep Kit) Allergies Allergy/AdvReac Type Severity Reaction Status Date / Time erythromycin base AdvReac Severe Stomach Verified 01/03/24 14:29 ache Exam Vital Signs (past 8 hours): - 02/29/24 08:14 Temperature 98.5 F Pulse Rate 83 Respiratory Rate 16 Blood Pressure 164/93 H Pulse Oximetry 97 Oxygen Delivery Method Room Air Oxygen Delivery Method Room Air Const General: No acute distress Resp Effort & Inspection: normal respiratory effort Assessment & Plan Assessment and plan (1) Rectal bleeding: Status: Acute Plan We reviewed the risks and benefits of colonoscopy and he would like to proceed. Time-Based Coding :: [TOTAL MINUTES] spent with patient and on the chart (including review of chart, obtaining history, exam, reviewing outside data, placing orders, documenting exam and treatment plan, and counseling patient) on [DATE].
--- NOTE | 2024-02-29 09:22 | PM.OP.COLON ---
Operative Date/Time/Diagnoses Date of procedure: 02/29/24 Time of procedure: 09:22 Pre-op diagnosis: Rectal bleeding Post-op diagnosis: same Procedure & Clinicians Study performed: Colonoscopy Same procedure as scheduled: Yes Surgeon: Nahun Grace Procedure Notes Procedure in detail: Surgeon: Nahun Grace MD Anesthesia: Kristyn Robins MD Procedure: The patient was brought to the endoscopy suite, placed in left lateral decubitus position. The patient was connected to monitoring devices. A time-out was performed. Sedation was administered. Once the patient was adequately sedated, a digital rectal exam was performed and was normal. The scope was then inserted and advanced to the cecum where the appendiceal orifice was identified and photographed. The scope was then slowly withdrawn over greater than 6 minutes. The mucosa was thoroughly inspected. There was a 7 mm polyp in the cecum removed a cold snare. There were 2 additional 3 mm polyps in the cecum removed with Jumbo forceps. Were all sent together. There were some sigmoid diverticula. There were prominent hemorrhoidal veins in the distal colon. There was a 7 mm polyp in the mid rectum removed with cold snare. There was some bleeding from the polypectomy site which was controlled with a single hemostatic clip. The scope was retroflexed in the rectum. The internal hemorrhoids were again noted. The scope was straightened and removed. The patient was awakened and brought to recovery. Scope withdrawal time: 22 minutes Sedation time: 24 minutes EBL: 10 mL Findings: Polyps in the cecum and rectum and internal hemorrhoids Post-procedure Disposition: PACU
[2024-02-29 09:26] VITALS: BP 129/79; PULSE 74; RESP 16; TEMP 35.9; O2SAT 94
[2024-02-29 09:31] VITALS: BP 128/76; PULSE 71; RESP 16; TEMP 36.2; O2SAT 98
[2024-02-29 09:36] VITALS: BP 125/75; PULSE 78; RESP 16; O2SAT 98
[2024-02-29 09:41] VITALS: BP 125/78; PULSE 78; RESP 16; TEMP 36.8; O2SAT 98
== END 2024-02-29 09:45 | disposition home or self-care (01) ==
PROVIDERS: Family Provider Family Medicine Geriatric Medicine; PCP Family Medicine; Referring Provider Surgery; Visit Provider Surgery
PROC: 0DJD8ZZ Inspection of Lower Intestinal Tract, Via Natural or Artificial Opening Endoscopic (ICD-10-PCS; CPT 45378; principal; 2024-02-29 08:45)
DX: K62.5 Hemorrhage of anus and rectum (principal); K64.8 Other hemorrhoids; K57.30 Diverticulosis of large intestine without perforation or abscess without bleeding; K63.5 Polyp of colon; D12.8 Benign neoplasm of rectum
CPT/HCPCS: 45385; J2704

== ENCOUNTER 2024-04-08 10:42 | Day surgery (SDC) | payer MEDICARE, OTHER, SELFPAY ==
[2023-12-22 16:16] VITALS: BMI 26.1
--- NOTE | 2024-04-08 | PATH_ITS ---
[facility] Accession Number: [id number] No. of containers..01 Tissue . 01 Material submitted: . esophagus - ESOPHAGUS . 01 Diagnosis: Esophagus, biopsy: - Columnar epithelium with intestinal metaplasia, (see comment) - Reactive squamous epithelium, negative for increased intraepithelial eosinophils. 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 TXN 04/10/2024 1612 Local . 01 Electronically signed: . Chandni Nunes MD, Pathologist NPI- [id number] . 01 Gross description: . ESOPHAGUS: Received in formalin are 3 fragment(s) of patton, soft tissue measuring 0.1 x 0.1 x 0.1 cm to 0.4 x 0.2 x 0.1 cm submitted entirely in 1 cassette(s) /[place] 04/09/2024 0130 Local . 01 Pathologist provided ICD-10: K22.70 . 01 CPT . 875484 Specimen Comment: A courtesy copy of this report has been sent to [phone] Performed at: [address] [facility] [address], [place], [place] [id number] MD Yash Cardenas MD Phone: [phone]
[2024-04-08 11:08] VITALS: BP 142/85; PULSE 68; RESP 16; TEMP 36.3; O2SAT 97
[2024-04-08] MEDS: LACTATED RINGERS 1,000 ML 150 ML IV (11:14)
--- NOTE | 2024-04-08 11:51 | SUR.OPER ---
EGD SCOPE 282
--- NOTE | 2024-04-08 11:52 | PM.HP.1 ---
History of Present Illness History of Present Illness Date Patient Seen: 04/08/24 Time Patient Seen: 11:52 Chief complaint: EGD w/poss bx Narrative: Dao is a 69-year-old man with dysphagia. He has had an esophageal dilation performed twice in the past with good results but he feels that his difficulty swallowing is slowly coming back. [facility] Medical History (Updated 04/08/24 @ 11:53 by Nahun Grace MD) Swallowing dysfunction Hepatitis A GERD (gastroesophageal reflux disease) Hypertension Surgical History H/O resection of large bowel Social History household members: spouse and children Smoking Status: Former smoker alcohol intake: current Meds Home Medications and Allergies Home Medications Medication Instructions Recorded Confirmed Type omeprazole 20 mg tablet,delayed 20 mg PO DAILY 02/01/19 04/08/24 History release zolpidem 10 mg tablet (Ambien) 10 mg PO BEDTIME PRN Insomnia 02/01/19 04/08/24 History amlodipine 10 mg tablet 10 mg PO DAILY 04/08/24 04/08/24 History Allergies Allergy/AdvReac Type Severity Reaction Status Date / Time erythromycin base AdvReac Severe Stomach Verified 04/08/24 11:05 ache Exam Vital Signs (past 8 hours): - 04/08/24 11:08 Temperature 97.4 F L Pulse Rate 68 Respiratory Rate 16 Blood Pressure 142/85 H Pulse Oximetry 97 Oxygen Delivery Method Room Air Oxygen Delivery Method Room Air Const General: No acute distress Resp Effort & Inspection: normal respiratory effort Assessment & Plan Assessment and plan (1) Dysphagia: Qualifiers: Dysphagia type: esophageal phase Qualified Code(s): R13.19 - Other dysphagia Status: Acute Plan We reviewed the risks and benefits of esophagogastroduodenoscopy with possible balloon dilation for dysphagia and he would like to proceed. There has also a question of history of Galindo's. I will perform biopsies from distal esophagus if there are any areas of mucosa. Time-Based Coding :: [TOTAL MINUTES] spent with patient and on the chart (including review of chart, obtaining history, exam, reviewing outside data, placing orders, documenting exam and treatment plan, and counseling patient) on [DATE].
[2024-04-08 12:14] VITALS: BP 119/76; PULSE 66; RESP 14; TEMP 36.2; O2SAT 90
--- NOTE | 2024-04-08 12:17 | PM.OP.EGD ---
Operative Date/Time/Diagnoses Date of procedure: 04/08/24 Time of procedure: 12:17 Pre-op diagnosis: Dysphagia Post-op diagnosis: same Procedure & Clinicians Study performed: Esophagogastroduodenoscopy Same procedure as scheduled: Yes Surgeon: Nahun Grace Procedure Notes Procedure in detail: Surgeon: Nahun Grace MD Anesthesia: Pialr Armendariz CRNA A timeout was performed. A bite blocked was placed. The patient was positioned in the left lateral decubitus position. Anesthesia was administered. The endoscope was inserted through the bite block and passed through the esophagus and stomach and into the duodenum. The duodenal mucosa appeared normal. The scope was withdrawn into the duodenal bulb and no abnormalities were found. The scope was withdrawn into the stomach. There were no abnormalities within the antrum. The rest of the stomach was normal. The scope was retroflexed and a moderately sized hiatal hernia was noted. The scope was withdrawn into the esophagus and there were some very short patches of salmon-colored mucosa at the junction. Biopsies were taken with cold forceps at the GE junction. The remainder of the esophagus was normal. The scope was withdrawn. The patient was awakened and brought to recovery. Sedation time: 6 minutes Findings: Moderate hiatal hernia and short patches of salmon-colored mucosa at the GE junction Post-procedure Disposition: PACU
[2024-04-08 12:19] VITALS: BP 122/71; PULSE 60; RESP 13; O2SAT 97
[2024-04-08 12:27] VITALS: BP 127/80; PULSE 63; RESP 15; O2SAT 98
[2024-04-08 12:40] VITALS: BP 131/74; PULSE 60; RESP 13; TEMP 36.3; O2SAT 97
== END 2024-04-08 12:49 | disposition home or self-care (01) ==
PROVIDERS: Family Provider Family Medicine Geriatric Medicine; PCP Family Medicine; Referring Provider Surgery; Visit Provider Surgery
PROC: 0DJ08ZZ Inspection of Upper Intestinal Tract, Via Natural or Artificial Opening Endoscopic (ICD-10-PCS; CPT 43235; principal; 2024-04-08 12:00)
DX: K22.70 Barrett's esophagus without dysplasia (principal); K44.9 Diaphragmatic hernia without obstruction or gangrene
CPT/HCPCS: 43239; J2704

== ENCOUNTER → 2024-07-08 10:32 | Outpatient (CLI) | payer MEDICARE, OTHER, SELFPAY ==
[2023-12-22 16:16] VITALS: BMI 26.1
--- NOTE | 2024-07-08 10:33 | DI.RAD.S_ITS ---
PROCEDURE: FL BARIUM SWALLOW INDICATIONS: Dysphagia COMPARISON: None. FINDINGS: Function: Tertiary esophageal contractions are present. Spontaneous gastroesophageal reflux is present to the level of the midthoracic esophagus in the standing position, and up to the level of the clavicles in the supine position. Morphology: Air-contrast images demonstrate normal mucosal morphology. Single contrast views show a small esophageal stricture at the distal gastroesophageal junction, where passage of a barium tablet was obstructed for longer than expected duration. There is a small hiatal hernia with Valsalva maneuver. Limited images of the stomach demonstrate normal appearance. IMPRESSION: 1. Focal stricture at the distal thoracic esophagus/gastroesophageal junction, which would be compatible with the history of Galindo's esophagus. 2. Spontaneous gastroesophageal reflux up to the level of the clavicles, with associated tertiary contractions. 3. Small hiatal hernia. Dictated by: Ross Denny M.D. on 07/08/2024 at 15:37 Approved by: Ross Denny M.D. on 07/08/2024 at 15:40
== END ==
PROVIDERS: Family Provider Family Medicine Geriatric Medicine; PCP Family Medicine; Referring Provider Radiology Diagnostic Radiology; Visit Provider Radiology Diagnostic Radiology
DX: K44.9 Diaphragmatic hernia without obstruction or gangrene (principal); K21.9 Gastro-esophageal reflux disease without esophagitis; R13.10 Dysphagia, unspecified
CPT/HCPCS: 74220

== ENCOUNTER 2025-01-23 06:45 | Day surgery (SDC) | payer MEDICARE, OTHER, SELFPAY ==
[2023-12-22 16:16] VITALS: BMI 26.1
[2025-01-23 07:02] VITALS: BP 131/83; PULSE 67; RESP 16; TEMP 36.2; O2SAT 98
[2025-01-23] MEDS: LACTATED RINGERS 1,000 ML 42 ML IV (07:23)
--- NOTE | 2025-01-23 07:45 | PM.HP.IH.1 ---
History of Present Illness History of Present Illness Date Patient Seen: 01/23/25 Time Patient Seen: 07:45 Chief complaint: EGD w/poss bx Narrative: Dao is a 69-year-old man who presents with dysphagia and reflux. See the prior office note for details. His symptoms tend to wax and wane. [facility] Medical History (Updated 04/08/24 @ 11:53 by Nahun Grace MD) Swallowing dysfunction Hepatitis A GERD (gastroesophageal reflux disease) Hypertension Surgical History H/O resection of large bowel Social History household members: spouse and children Smoking Status: Former smoker alcohol intake: current Meds Home Medications and Allergies Home Medications ?Medication ?Instructions ?Recorded ?Confirmed ?Type omeprazole 20 mg tablet,delayed 20 mg PO DAILY 02/01/19 01/23/25 History release zolpidem 10 mg tablet (Ambien) 10 mg PO BEDTIME PRN Insomnia 02/01/19 01/23/25 History amlodipine 10 mg tablet 10 mg PO DAILY 04/08/24 01/23/25 History atorvastatin 40 mg tablet 40 mg PO 01/23/25 History Allergies Allergy/AdvReac Type Severity Reaction Status Date / Time erythromycin base AdvReac Severe Stomach Verified 01/23/25 06:57 ache Exam Vital Signs (past 8 hours): - 01/23/25 07:02 Temperature 97.1 F L Pulse Rate 67 Respiratory Rate 16 Blood Pressure 131/83 Pulse Oximetry 98 Oxygen Delivery Method Room Air Oxygen Delivery Method Room Air Const General: healthy appearing Assessment & Plan Assessment and plan (1) Dysphagia: Qualifiers: Dysphagia type: esophageal phase Qualified Code(s): R13.19 - Other dysphagia Status: Acute Plan EGD with balloon dilation Time-Based Coding :: [TOTAL MINUTES] spent with patient and on the chart (including review of chart, obtaining history, exam, reviewing outside data, placing orders, documenting exam and treatment plan, and counseling patient) on [DATE]. [employer] Chair Document charge(s): No
[2025-01-23 08:15] VITALS: BP 110/58; PULSE 58; RESP 16; TEMP 36.1; O2SAT 97
[2025-01-23 08:20] VITALS: BP 107/60; PULSE 57; RESP 14; O2SAT 97
[2025-01-23 08:25] VITALS: BP 105/57; PULSE 57; RESP 16; O2SAT 98
--- NOTE | 2025-01-23 08:29 | P.OP.EGD_ITS ---
Operative Date/Time/Diagnoses Date of procedure: 01/23/25 Time of procedure: 08:29 Pre-op diagnosis: Dysphagia Post-op diagnosis: same Procedure & Clinicians Study performed: Esophagogastroduodenoscopy and balloon dilation Same procedure(s) as scheduled: Yes Surgeon: Nahun Grace Anesthesia Type: MAC +/- Procedure Notes Procedure in detail: Surgeon: Nahun Grace MD Anesthesia: Adriana Chowdhury CRNA A timeout was performed. A bite blocked was placed. The patient was positioned in the left lateral decubitus position. Anesthesia was administered. The endoscope was inserted through the bite block and passed through the esophagus and stomach and into the duodenum. The duodenal mucosa appeared normal. The scope was withdrawn into the duodenal bulb and no abnormalities were seen. The scope was withdrawn into the stomach. No abnormalities were seen in the stomach. The rest of the stomach was normal. The scope was retroflexed and no significant hiatal hernia was seen. The scope was withdrawn into the esophagus and no gross abnormalities were noted in the distal esophagus. There was a mild narrowing in the distal esophagus and balloon dilation was performed starting at 12 mm then progressing to 13.5 mm then to 15 mm. There was no evidence of mu cosal lacerations or bleeding. We then went to the next size up to 16.5 mm which is 49.5 [place]. There were some small mucosal tears with a negligible amount of bleeding visible after irrigation. There was no active bleeding at the conclusion of the dilation. The remainder of the esophagus was normal. The scope was withdrawn. The patient was awakened and brought to recovery. Sedation time: 14 minutes Findings: Mild narrowing of the distal esophagus, balloon dilation was performed up to 16.5 mm or 49.5 [place] Post-procedure Disposition: PACU
[2025-01-23 08:30] VITALS: BP 101/57; PULSE 59; RESP 16; O2SAT 96
[2025-01-23 08:32] VITALS: BP 113/65; PULSE 59; RESP 14; O2SAT 94
== END 2025-01-23 08:51 | disposition home or self-care (01) ==
PROVIDERS: Family Provider Family Medicine Geriatric Medicine; PCP Family Medicine; Referring Provider Surgery; Visit Provider Surgery
PROC: 0DJ08ZZ Inspection of Upper Intestinal Tract, Via Natural or Artificial Opening Endoscopic (ICD-10-PCS; CPT 43249; principal; 2025-01-23 07:45)
DX: R13.10 Dysphagia, unspecified (principal); K21.9 Gastro-esophageal reflux disease without esophagitis; Z87.891 Personal history of nicotine dependence
CPT/HCPCS: 43249; J2704